=== PATIENT | female | born 1970 | race Two or more races ===

== ENCOUNTER 2019-04-21 14:42 | Emergency (ER) | payer OTHER ==
[~2019-04-21] VITALS: Ht 167.6 cm; Wt 85.7 kg
[2019-04-21 14:50] VITALS: BP 141/95
[2019-04-21] MEDS ORDERED: TETANUS-DIPTH-ACEL PERTUSSIS 0.5ML SYRG IM ONE (17:30)
== END 2019-04-21 17:49 | disposition home or self-care (01) ==
LOC: ER 14:44
DX: S61.432A Puncture wound without foreign body of left hand, initial encounter (principal); W54.0XXA Bitten by dog, initial encounter; Y93.89 Activity, other specified; Y92.89 Other specified places as the place of occurrence of the external cause; Y99.8 Other external cause status
CPT/HCPCS: 90471; 90715